=== PATIENT | female | born 1980 | race Two or more races ===

== ENCOUNTER 2023-05-31 10:35 | Emergency (ER) | payer MEDICAID ==
[~2023-05-31] VITALS: Ht 162.6 cm; Wt 65.8 kg
[2023-05-31 10:43] VITALS: TEMP 98.2
[2023-05-31] MEDS ORDERED: IBUPROFEN 400 MG TABLET ONE (11:23)
[2023-05-31] MEDS ORDERED: IBUPROFEN 600 MG TABLET ONE (11:28)
[2023-05-31] MEDS: IBUPROFEN 600 MG TABLET PO ONE (11:36)
[2023-05-31] MEDS ORDERED: IBUP-1955 PO (12:06)
[2023-05-31 12:20] VITALS: BP 121/76; O2SAT 100
== END 2023-05-31 12:21 | disposition home or self-care (01) ==
LOC: ER 10:35
DX: S20.211A Contusion of right front wall of thorax, initial encounter (principal); W50.0XXA Accidental hit or strike by another person, initial encounter; Y93.89 Activity, other specified; Y92.89 Other specified places as the place of occurrence of the external cause; Y99.8 Other external cause status
CPT/HCPCS: 71100-TC